=== PATIENT | male | born 1955 | race Caucasian/White ===

== ENCOUNTER 2016-09-25 07:17 | Emergency (ER) | payer OTHER ==
[~2016-09-25] VITALS: Ht 182.9 cm; Wt 81.6 kg
[~2016-09-25 07:17] MED LIST: CRESTOR 10MG10 MG PO; JANUMET 1000 MG1 TAB PO; SIMVASTATIN20 MG PO
--- NOTE | 2016-09-25 07:30 | ED AMS/SEIZURE/WEAK/DIZZY ---
History of Present Illness General Chief Complaint: Seizure Stated Complaint: BIBA SEIZURE Source: family, old records, EMS Exam Limitations: clinical condition Vital Signs & Intake/Output Vital Signs & Intake/Output Vital Signs Date Time Temp Pulse Resp B/P B/P Pulse O2 O2 Flow FiO2 Mean Ox Delivery Rate 09/25 820 84 16 142/74 94 Nasal 4.0L Cannula 09/25 816 94 Nasal 2.0L Cannula 09/25 722 98.9 80 14 134/91 98 Room Air Allergies Coded Allergies: NO KNOWN ALLERGIES (09/25/16) Reconcile Medications Metformin Hydrochloride/Bernie (Janumet 1000 MG-50 MG) 1 TAB TAB 1 TAB PO DAILY DM (Reported) Rosuvastatin Calcium (Crestor) 10 MG TABLET 1 TAB PO DAILY CHOL (Reported) Triage Nurses Notes Reviewed? yes HPI: Patient has known metastatic liver cancer. Patient is a full code despite being on hospice at home. Last night he began to complain of headache. Patient went to bed but then woke up during the night stating that his head was slightly better. This morning his was unable to wake him up and found him having tonic-clonic seizure activity. EMS was contacted and the patient was found unresponsive with a left fixed gaze. Patient had a tonic-clonic seizure in the ambulance and was given 2 mg of IV Ativan. Patient brought to the emergency department. Patient continues to have a left fixed gaze. Past History Travel History Traveled to [place] past 21 day No Medical History Any Pertinent Medical History? see below for history Cancer(s): liver cancer Surgical History Surgical History: non-contributory Psychosocial History What is your primary language Bruneian Tobacco Use: Cognitive Impairment Family History Hx Contributory? No Review of Systems Review of Systems Constitutional: Reports: see HPI. Physical Exam Physical Exam General Appearance: severe distress Head: atraumatic Eyes: Bilateral: other (LEFT FIXED GAZE, PUPILS NONREA). Ears, Nose, Throat: normal ENT inspection Neck: normal inspection, supple Respiratory: normal breath sounds, chest non-tender, no respiratory distress, lungs clear Cardiovascular: regular rate/rhythm, normal peripheral pulses Gastrointestinal: normal bowel sounds, soft Back: normal inspection Extremities: normal range of motion Neurologic/Psych: SEE BELOW Comments: Left fixed gaze with pupils fixed and dilated. Withdraws from painful stimuli. Babinski's downgoing bilaterally. Reflexes are 2+ bilaterally and symmetrically. Patient is nonverbal and not following any commands. Core Measures ACS in differential dx? No CVA/TIA Diagnosis: No Severe Sepsis Present: No Septic Shock Present: No Progress Differential Diagnosis: CVA/stroke, drug intoxication, electrolyte imbalance, intracranial Hem., intracranial mass/tumor Plan of Care: Orders Procedure Date/time Status EKG 09/25 0756 Active Telemetry/Internet Consultant 09/25 0730 Active Current Medications Sig/Sher Start time Last Medication Dose Stop Time Status Admin Morphine Sulfate 4 MG ONCE ONE 09/25 1315 AC (Morphine) 09/25 1316 Laboratory Tests 09/25/16 0730: Ammonia Cancelled, APTT Cancelled, CBC w Diff Cancelled, WBC Cancelled, RBC Cancelled, Hgb Cancelled, Hct Cancelled, MCV Cancelled, MCH Cancelled, RDW Cancelled, Plt Count Cancelled, MPV Cancelled, PUBS MCHC Cancelled, Urine Color Cancelled, Urine Clarity Cancelled, Urine pH Cancelled, Ur Specific [place] Cancelled, Urine Protein Cancelled, Urine Ketones Cancelled, Urine Nitrite Cancelled, Urine Bilirubin Cancelled, Urine Urobilinogen Cancelled, Ur Leukocyte Esterase Cancelled, Ur Microscopic Cancelled, Urine Hemoglobin Cancelled, Urine Glucose Cancelled Diagnostic Imaging: Viewed by Me: CT Scan. Discussed w/RAD: CT Scan. Radiology Impression: PATIENT: TOO HARP PRESENT AGE: 61 PATIENT ACCOUNT NO: [id number] : 53 LOCATION: [facility] ORDERING PHYSICIAN: GOPI SAEZ MD SERVICE DATE: 09/25/16 EXAM TYPE: CAT - CT HEAD WO IV CONTRAST EXAMINATION: CT HEAD WITHOUT CONTRAST CLINICAL INFORMATION: Seizure, nonresponsive. Age 61. COMPARISON: None TECHNIQUE : Contiguous axial imaging was performed from the skull base to vertex without intravenous administration of contrast. DLP: 1605 mGy-cm FINDINGS: There is an acute intraparenchymal hematoma at the posterior right temporal lobe measuring 2.6 x 3.5 cm. There is associated circumferential surrounding edema with effacement of the temporal lobe cortical sulci and mild impression on the right lateral ventricle. There is borderline midline shift of perhaps 2 mm. There is no associated intraventricular or subarachnoid hemorrhage. No hydrocephalus. Remainder of the casas-white matter differentiation appears symmetric. The calvarium appears intact. There is no pneumocephalus or orbital emphysema. The visualized sinuses and middle ears and mastoid air cells show no significant mucosal thickening. There are no air-fluid levels. Results are called to Dr. Saez in the Emergency Department at 0805 hours. IMPRESSION: Acute right posterior temporal intraparenchymal hematoma 3.5 cm with circumferential surrounding edema and mild mass effect. DICTATED BY: MARIO LEA MD DATE/ TIME DICTATED:09/25/16755 COMMERCIAL ART INSTRUCTOR:BRITTANI DATE/TIME TRANSCRIBED: 09/25/16755 CONFIDENTIAL, DO NOT COPY WITHOUT APPROPRIATE AUTHORIZATION. < Electronically signed in Other Vendor System> SIGNED BY: MARIO LEA MD 09/25/16809 CXR Impression: PATIENT: TOO HARP PRESENT AGE: 61 PATIENT ACCOUNT NO: [id number] : 53 LOCATION: [facility] ORDERING PHYSICIAN: GOPI SAEZ MD SERVICE DATE: 09/25/16 EXAM TYPE: RAD - XRY-PORTABLE CHEST XRAY EXAMINATION: XR PORTABLE CHEST CLINICAL INFORMATION: 61-year-old male patient found unresponsive. CT of the head demonstrated an acute right posterior temporal intraparenchymal hemorrhage. COMPARISON: Chest x- ray on 11/07/2011. TECHNIQUE: Portable AP semierect view of the chest was obtained. FINDINGS: The patient was unable to take a full inspiration for this exam. Given this and the semierect position, the heart does appear to be enlarged and the thoracic aorta uncoiled. There is no definite evidence of consolidating pneumonia or pulmonary edema. The lack of a satisfactory respiratory effort has resulted in crowding of the bronchovascular structures. There is marked osteolytic bone destruction of the lateral aspect of left clavicle associated with a soft tissue mass and soft tissue calcifications. This has resulted in gross separation of the left AC joint. No additional bone lesions are detected. IMPRESSION: 1. Heart enlarged. No CHF or aspiration pneumonia. 2. Osteolytic destruction of the lateral aspect of the clavicle and a soft tissue mass located in the vicinity of the left AC joint. Spicules of bone adjacent to the destroyed clavicle. A primary or secondary bone tumor is suspected. DICTATED BY: MOISES GUTIERREZ MD DATE/TIME DICTATED:09/25/16924 COMMERCIAL ART INSTRUCTOR:BRITTANI DATE/TIME TRANSCRIBED:09/25/16924 CONFIDENTIAL, DO NOT COPY WITHOUT APPROPRIATE AUTHORIZATION. <Electronically signed in Other Vendor System> SIGNED BY: MOISES GUTIERREZ MD 09/25/1601 Initial ED EKG: none Comments: CAT scan results were discussed with the . Patient is on home hospice. would prefer to just make him comfortable. Patient's CODE STATUS change to comfort measure only. Departure Departure Disposition: OTHER [facility] (ACUTE) Condition: Stable Clinical Impression Primary Impression: Intracerebral hemorrhage Referrals: LIZETH ASCENCIO MD (PCP/Family) Additional Instructions: ADMIT TO HOSPICE Departure Forms: Customer Survey General Discharge Information Critical Care Note Critical Care Note Critical Care Time: mins: (45 MIN)
--- NOTE | 2016-09-25 08:10 | CT SCAN REPORT ---
EXAMINATION: CT HEAD WITHOUT CONTRAST CLINICAL INFORMATION: Seizure, nonresponsive. Age 61. COMPARISON: None TECHNIQUE: Contiguous axial imaging was performed from the skull base to vertex without intravenous administration of contrast. DLP: 1605 mGy-cm FINDINGS: There is an acute intraparenchymal hematoma at the posterior right temporal lobe measuring 2.6 x 3.5 cm. There is associated circumferential surrounding edema with effacement of the temporal lobe cortical sulci and mild impression on the right lateral ventricle. There is borderline midline shift of perhaps 2 mm. There is no associated intraventricular or subarachnoid hemorrhage. No hydrocephalus. Remainder of the casas-white matter differentiation appears symmetric. The calvarium appears intact. There is no pneumocephalus or orbital emphysema. The visualized sinuses and middle ears and mastoid air cells show no significant mucosal thickening. There are no air-fluid levels. Results are called to Dr. Giordano in the Emergency Department at 0805 hours. IMPRESSION: Acute right posterior temporal intraparenchymal hematoma 3.5 cm with circumferential surrounding edema and mild mass effect.
[2016-09-25 08:21] VITALS: BP 142/74
--- NOTE | 2016-09-25 09:35 | RADIOLOGY REPORT ---
EXAMINATION: XR PORTABLE CHEST CLINICAL INFORMATION: 61-year-old male patient found unresponsive. CT of the head demonstrated an acute right posterior temporal intraparenchymal hemorrhage. COMPARISON: Chest x-ray on 11/07/2011. TECHNIQUE: Portable AP semierect view of the chest was obtained. FINDINGS: The patient was unable to take a full inspiration for this exam. Given this and the semierect position, the heart does appear to be enlarged and the thoracic aorta uncoiled. There is no definite evidence of consolidating pneumonia or pulmonary edema. The lack of a satisfactory respiratory effort has resulted in crowding of the bronchovascular structures. There is marked osteolytic bone destruction of the lateral aspect of left clavicle associated with a soft tissue mass and soft tissue calcifications. This has resulted in gross separation of the left AC joint. No additional bone lesions are detected. IMPRESSION: 1. Heart enlarged. No CHF or aspiration pneumonia. 2. Osteolytic destruction of the lateral aspect of the clavicle and a soft tissue mass located in the vicinity of the left AC joint. Spicules of bone adjacent to the destroyed clavicle. A primary or secondary bone tumor is suspected.
== END 2016-09-25 13:30 ==
LOC: ERH 07:17 → ENTRNSPT 13:27 → ERH 13:30 → CMPTRNSPT 09-26 14:29
DX: I61.9 Nontraumatic intracerebral hemorrhage, unspecified (principal)
CPT/HCPCS: 96374; 96375; 96376; J2405

== ENCOUNTER 2016-09-25 13:29 | Inpatient (IN) | payer OTHER ==
--- NOTE | 2016-09-25 13:30 | NUR ---
PT ARRIVED FROM ER WITH NURSING SUPERVISION AT BEDSIDE AND FAMILY. WHEN PULLING PT FROM STRETCHER TO BED, PT YELLED OUT AND ATTEMPTED TO PUSH STAFF AWAY. ONCE SETTLED IN BED, PT FELL ASLEEP WITHOUT S/S OF DISTRESS. AWAITING ORDERS FROM HOSPICE MD. NO ORDERS IN PLACE AT THIS TIME.
[2016-09-25 14:00] VITALS: BP 154/80
--- NOTE | 2016-09-25 15:55 | NUR ---
1400- PT ARRIVED TO FLOOR VIA STRETCHER FROM ER. FLAT DRIER PRESENT WITH FAMILY. PT BEING ADMITTED TO HOSPICE SERVICE. PT RESPONSIVE TO TOUCH/ REPOSITION. PT AGITATED AT TIMES TO REPOSITION. AND MANY FAMILY MEMBERS PRESENT. VSS. PT INCONTINENT OF URINE AND CLEANED. SKIN INTACT EXCEPT FOR A FEW SCABBED SCRATCHES TO EXTREMITIES. PT HAD BEEN MEDICATED IN ER WITH ATIVAN AND MORPHINE PRIOR TO COMING TO FLOOR. FAMILY REQUESTING ADDITIONAL MEDICATION FOR PT. DR. AWAD PAGED FOR HOSPICE ORDERS.
--- NOTE | 2016-09-25 15:59 | NUR ---
1500- DR. ROLLE PRESENT TO INPUT HOSPICE ORDERS INCLUDING MORPHINE DRIP, WHICH WAS DISCUSSED WITH BY TREE FELLER AND DR. ROLLE AND AGREED TO BY . SIZEWISE MATTRESS ORDERED. SEIZURE PRECAUTIONS PUT IN PLACE.
--- NOTE | 2016-09-25 17:28 | NUR ---
1715-CALLED TO ROOM BY FAMILY. PT VOMITING. MOUTH SUCTIONED AND PT CLEANED. PT ALSO AGITATED. MOD DR. CJ LAWRENCE CALLED AND INFORMED OF ABOVE. DR. LAWRENCE TO ORDER ZOFRAN AND TO CHANGE ORDER FOR ATIVAN FROM Q4 TO Q3. WILL CONTINUE TO MONITOR.
--- NOTE | 2016-09-25 18:30 | PN- Att Addend ---
Attending Addendum Attending Brief Note Chief complaint- seizure this morning History of present illness Patient seen and examined. Plan of care discussed with the medical team and the patient. Available lab work and radiology test reports were reviewed. Patient 61-year-old male who has been suffering from a metastatic liver cancer with metastases to bones and brain who has been mostly treated at [facility] and never been to [facility] before. Therefore no records are available. Patient was obtunded and was not able to contribute to history. Multiple family member were present at the bedside. History was taken from family members. Apparently patient was diagnosed but year and half ago with liver cancer with metastasis. Later on he was also diagnosed with brain metastases. He was on chemotherapy which apparently did not improve his condition and chemotherapy has been stopped recently. As per family patient has been on hospice care at home. This morning family noted him to be seizing and after the seizure patient became lethargic and obtunded. They opted to bring him in to emergency room. Initially family wanted to take him back home as per patient's wishes however he was too lethargic to be able to be discharged home. Past history * Metastatic liver cancer * Possible diabetes * Hypertension Allergies None Medication-for CMR. Apparently patient has been taking OxyContin Ativan at home for pain control Family history-reviewed and noncontributory Social history- patient lives at home with family; he doesn't smoke or drink Vital Signs Date Time Temp Pulse Resp B/P B/P Pulse O2 O2 Flow FiO2 Mean Ox Delivery Rate 09/25 1400 97.7 77 18 154/80 92 Room Air Exam: General: Patient is lethargic and obtunded and does not wake up and does not follow commands CVS: S1 plus S2 without any murmur or gallops Chest: Few scattered crepitation without any wheeze. There is no respiratory distress. Abdomen: Soft nontender, bowel sound present, no guarding or rebound LENS CLEANER: Obtunded and difficult to do a neurological exam. Tone appears to be intact bilaterally. Patient resists eye opening. Patient is intermittently noted be morning. Extremities: No edema; no clubbing or cyanosis noted Labs- none obtained Chest x-ray 1. Heart enlarged. No CHF or aspiration pneumonia. 2. Osteolytic destruction of the lateral aspect of the clavicle and a soft tissue mass located in the vicinity of the left AC joint. Spicules of bone adjacent to the destroyed clavicle. A primary or secondary bone tumor is suspected. CT head Acute right posterior temporal intraparenchymal hematoma 3.5 cm with circumferential surrounding edema and mild mass effect. Assessment * Suspected intracranial bleed * Metastatic brain tumor * Metastatic liver cancer * Metastases to bone * History of hypertension * Seizure disorder Plan At this point family has opted to continue hospice care. They had informed me that the patient does not wish to be in hospital and will like to be discharged as possible back to home hospice. His CODE STATUS was changed to comfort measures. We will start morphine and Ativan and scopolamine patch. Plan is for possible discharge back to home tomorrow. Plan was discussed with hospice nurse and patient's family.
--- NOTE | 2016-09-25 19:37 | NUR ---
AT 1830 UPON BEDSIDE REPORT PATIENT WAS EXTREMELY AGITATED, ANXIOUS, AND COMBATIVE. FLACC SCORE OF 7. ATIVAN WAS PREVIOUSLY JUST GIVEN ONE HOUR PRIOR. PATIENT GIVEN 4 MG MORPHINE PER EMAR. AT 1900 MD HOOD WAS CALLED AND THIS RN REQUESTED SCHEDULED ATIVAN FOR THE PATIENT HE IS VERY ANXIOUS AND AGITATED AND HAD A SEIZURE THIS MORNING. MD ORDERED 1 MG IV ATIVAN Q 4 HOURS. THIS RN ALSO REQUESTED THAT PATIENT BE ON SQ HALDOL FOR HALLUCINATIONS, PATIENT IS CONTINUALLY SWATTING AND GRABBING AT NOTHING. THIS RN EXPLAINED THAT HALDOL IS A STANDARD HOSPICE ORDER. STATED THAT WE CAN SEE HOW SUCCESSFUL THE IV ATIVAN SCHEDULED IS FIRST. THIS RN ALSO EXPLAINED TO MD HOOD THAT THE MORPHINE GTT PROTOCOL WAS INCORRECT IN THE EMAR AND THE PRN DOSES NEEDED TO BE DC'D AND A Q 20 MINUTE MORPHINE PER PROTOCOL NEEDED TO BE ADDED. STATED THAT THE ORDER IS FINE IS AND CAN BE CHANGED IN THE MORNING BY THE HOSPICE EPIC DIRECTOR. PATIENT WAS GIVEN PRN MORPHINE AND PRN ATIVAN AND IS CURRENTLY RESTING COMFORTABLY WITH FAMILY AT BEDSIDE.
--- NOTE | 2016-09-25 22:44 | NUR ---
THIS RN SPOKE TO MD HOOD REGARDING PATIENT'S INCREASING AGITATION. PRN 1MG SQ HALDOL WAS ORDERED AND ADMINISTERED VIA SQ BUTTON TO L ABD THAT WAS INSERTED BY THIS RN. PT CONTINUES TO BE INCREASINGLY AGITATED. FLACC SCORE OF 7 INDICATED FOR MORPHINE BOLUS' AT 2113,2138,2205. MORPHINE GTT WAS INCREASED TO 4 MG/HR THEREAFTER PER TITRATION PROTOCOL. AT THIS TIME PATIENT IS RESTING QUIETLY WITH RR 12, EVEN AND NON-LABORED AND A FLACC SCORE OF 0. FAMILY AT BEDSIDE AT THIS TIME AND UNDERSTANDS PLAN OF CARE.
[2016-09-26 06:50] VITALS: BP 130/80
--- NOTE | 2016-09-26 08:30 | NUR ---
CARE ASSUMED BY THIS RN. PT APPEARS TO BE SLEEPING, BUT PER AND FAMILY, MOVING HANDS IF TO GRAB HIS HEAD. PER , PT HAS BEEN GRABBING HIS HEAD WHEN IN PAIN. MORPHINE GTT CURRENTLY RUNNING AT 4MG/HR VIA HL TO RW. BOLUS DOSE ADMINISTERED. AND FAMILY AT BEDSIDE. EDUCATION PROVIDED ABOUT MORPHINE GTT PROTOCOL. ADDITIONAL BOLUS DOSES GIVEN AT 9AM AND 930AM. MORPHINE GTT INCREASED TO 8MG/HR. WILL CONTINUE TO MONITOR.
--- NOTE | 2016-09-26 10:00 | NUR ---
PT PRE-MEDICATED WITH 1MG IV ATIVAN AND 8MG IV MORPHINE PRIOR TO TRANSFER TO [facility]. PT MOANING WITH REPOSITIONING AND ATTEMPTING TO GET OUT OF BED. WHEN ASKED IF HE HAD TO USE THE BATHROOM, PT STATES "YES" AND ATTEMPTED TO GET OUT OF BED. PT ABLE TO STAND AT EDGE OF BED WITH ASSIST OF 2 AND VOIDED 250ML OF CLEAR BATSHEVA URINE. ASSISTED BACK TO BED, REPOSITIONED ON BACK PER FAMILY. STATES THAT PT HAS TOO MUCH PAIN FROM MULTIPLE TUMORS TO BE TURNED ON SIDE. SKIN REMAINS INTACT. BED ALARM PLACED. FAMILY REMAINS AT BEDSIDE.
--- NOTE | 2016-09-26 11:00 | NUR ---
PT APPEARS COMFORTABLE. RR 16 AND NON-LABORED. MORPHINE GTT INFUSING AT 8MG/HR. PRN HALDOL AND ZOFRAN GIVEN ORDERED PER FAMILY'S REQUEST. PT HAS NO S/S OF ACTIVE NAUSEA AND HAS NOT VOMITTED BUT FAMILY EXPRESSED CONCERN DUE TO HIS EPISODE OF VOMITTING EARLIER IN THE DAY. WILL MONITOR.
--- NOTE | 2016-09-26 14:00 | NUR ---
PT APPEARS COMFORTABLE. NO S/S OF DISTRESS OR PAIN. SCHEDULED IV ATIVAN GIVEN ORDERED. FAMILY REFUSING REPOSITIONING. BED ALARM IN PLACE, SAFETY MAINTAINED.
--- NOTE | 2016-09-26 14:26 | PN- Hospice ---
Subjective Subjective: Family at bedside. Pt resting comfortably at this time, had rough night with pain and agitation. Currently with morphine drip at 8mg/hr. Ativan is schduled every 4 hrs and still with agitation during care. Has received Haldol 1 mg x3 doses overnight, zofran x 3 doses overnight. Arousable to stimulation, no oral intake. Was able to stand earlier today with assistance to use urinal. Objective Last 24 Hrs of Vital Signs/I&O Vital Signs Date Time Temp Pulse Resp B/P B/P Pulse O2 O2 Flow FiO2 Mean Ox Delivery Rate 09/26 0650 97.8 78 20 130/80 93 Room Air Intake & Output 09/26 1600 09/26 0800 09/26 0000 Intake Total 50 30 Output Total 300 Balance -250 30 Intake, IV 50 30 Output, 300 Emesis Physical Exam General Appearance: no apparent distress, comfortable, sedated Head: atraumatic, normal appearance Respiratory: no respiratory distress, crackles (fine, scattered anteriorly) Cardiovascular: regular rate/rhythm Extremities: no edema, no mottling Current Medications: Current Medications Sig/Sher Start time Last Medication Dose Route Stop Time Status Admin Acetaminophen 650 MG Q4P PRN 09/25 1445 AC MS Artificial Tears 2 GTT Q2P PRN 09/25 1430 AC OU Bisacodyl 10 MG DAILY PRN 09/26 1345 AC MS Fentanyl Citrate 50 MCG Q72H 09/25 1445 DC TOP Glycerin 2 SPRAY Q4P PRN 09/25 1430 AC PO Glycerin/Mineral Oil 1 AGATHA Q8P PRN 09/25 1430 AC TOP Haloperidol 1 MG Q6 09/26 1800 AC SC Haloperidol 5 MG .STK-MED ONE 09/26 0450 DC IM 09/26 0451 Haloperidol 1 MG Q6-PRN PRN 09/25 2115 AC 09/26 SC 1055 Lorazepam 1 MG Q4 09/25 2200 AC 09/26 IV 1341 Lorazepam 1 MG Q3 PRN 09/25 1723 AC 09/26 IV 0832 Lorazepam 2 MG Q4P PRN 09/25 1445 DC 09/25 IV 1445 Lorazepam 1 MG Q4P PRN 09/25 1445 DC IV Morphine Sulfate 100 MG Q12H 09/26 1015 AC 09/26 Dextrose/Water 100 ML IV 1055 Morphine Sulfate See Dose [id number] PRN 09/25 2045 AC 09/26 Insts (1) IV 1016 Morphine Sulfate 100 MG Q24H 09/25 1500 DC 09/25 Dextrose/Water 100 ML IV 2208 Morphine Sulfate 4 MG Q4P PRN 09/25 1445 DC 09/25 IV 1842 Morphine Sulfate 0 Q2P PRN 09/25 1445 DC SC Morphine Sulfate 2 MG Q2P PRN 09/25 1445 DC IV Ondansetron HCl 4 MG .STK-MED ONE 09/26 0452 DC IM 09/26 0453 Ondansetron HCl 4 MG Q6P PRN 09/25 1730 AC 09/26 IV 1055 Scopolamine HBr 1 PAT Q72 09/28 1000 CAN TOP Scopolamine HBr 1 PAT Q72 PRN 09/25 1445 AC TOP Dose Instructions: (1)Morphine Sulfate: PER MORPHINE DRIP PROTOCOL Assessment/Plan Assessment/Recommendations: Pt. is a 61-year-old male admitted yesterday from home. 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 He had a seizure 03/03 am and came to [place] ED where CT of head revealed acute right posterior temporal intraparenchymal hematoma with surrounding edema and mild mass effect. At home he had been on large doses of oxycontin and oxycodone, for pain management since April, as well as morphine oral concentrate more recently. Today, pt appears comfortable but is still having periods of agitation and nausea. Will schedule haldol 1mg every 6 hours and continue with prn haldol and zofran as well. Support provided to family. Problem List: 1. Intraparenchymal hematoma of brain 2. Seizure 3. Carcinoma of liver 4. Brain metastases 5. Bone metastases
[2016-09-27 06:16] VITALS: BP 144/82
--- NOTE | 2016-09-27 12:23 | NUR ---
0000 PT ASLEEP WITH NO DISTRESS NOTED.FAMILY AT BEDSIDE.ON RA.MORPHINE GTT @ 8ML/HR.HOB UP.NO RESP DISTRESS NOTED.ON SIZEWISE BED.JAUNDICE.SEIZURE PRECAUTION.MED GIVEN ORDERED. 0200 ASLEEP 0400 REMAINS ASLEEP WITHOUT PROBLEM. 0600 PT WOKE UP GOT RESTLESS & WANTED TO GET OUT OF BED.OOB WITH 2 STAFFS. STAND TO VOID.ASSISTED BACK TO BED & MADE COMFORTABLE.SETTLED BACK TO SLEEP.FAMILY REMAINS AT BEDSIDE.
--- NOTE | 2016-09-27 14:42 | PN- Hospice ---
Subjective Subjective: Family at bedside. Pt is sleeping, appears comfortable. Has woken up for brief periods with short verbalizations to family. No oral intake. Cordova catheter was placed this am with 700cc dark fide urine returned. reports pt has had audible secretions. Low grade fever noted this am. No nausea or vomiting since scheduled haldol started. Morphine drip remains at 8mg an hour. Objective Last 24 Hrs of Vital Signs/I&O Vital Signs Date Time Temp Pulse Resp B/P B/P Pulse O2 O2 Flow FiO2 Mean Ox Delivery Rate 09/27 0616 99.1 105 20 144/82 88 Room Air 09/27 0000 Room Air Intake & Output 09/27 1600 09/27 0800 09/27 0000 Intake Total 64 30 Output Total 550 300 Balance -486 -270 Intake, IV 64 30 Intake, Oral 0 0 Number 0 Bowel Movements Output, Urine 550 300 Physical Exam General Appearance: no apparent distress, sedated Head: atraumatic Respiratory: no respiratory distress, rhonchi (anteriorly) Cardiovascular: tachycardia Abdomen: soft, non-tender Extremities: no edema, no mottling Skin: warm and mildly diaphoretic Other Physical Findings: cordova catheter with fide urine Assessment/Plan Assessment/Recommendations: Pt. 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 Pt appears comfortable, continue scheduled ativan and haldol, morphine drip with titration protocol. For congestion, discussed with nursing to apply scopolamine patch (if it had been on previously, it fell off); scheduled robinul ordered as well as when necessary Robinul. Monitor temperature and give tylenol as directed. Problem List: 1. Intraparenchymal hematoma of brain 2. Seizure 3. Carcinoma of liver 4. Brain metastases
--- NOTE | 2016-09-27 19:47 | NUR ---
PT ALERT & CONFUSED, ON ROOM AIR, RR 14-16 AND NONLABORED. RESPONSIVE TO QUESTIONS AND VERBAL STIMULI, DENIES PAIN/DISCOMFORT. ON MORHPHINE GTT AT 8MG/HR. PEARL PLACED AT 1101 DUE TO PT BEING UNSTEADY ON FEET AND HAVING TROUBLE VOIDING. MULTIPLE FAMILY MEMBERS AT BEDSIDE THROUGHOUT DAY, EMOTIONAL SUPPORT AND TEACHING PROVIDED WHEN NECESSARY. SAFETY MAINTAINED, NEEDS IN REACH.
--- NOTE | 2016-09-28 03:51 | NUR ---
NURSING NOTE: PT BECAME RESTLESS AND AGITATED. PULLING AT PEARL, ATTEMPTING TO GET OOB. ATTEMPTS AT REORIENTATION UNSUCCESSFUL. PRN ATIVAN ADMINISTERED IV. PT SAFELY IN BED, RESTING, WITH FAMILY AT BEDSIDE.
[2016-09-28 06:30] VITALS: BP 140/84
--- NOTE | 2016-09-28 15:45 | NUR ---
PT CALM AND COMFORTABLE, RR 12-14 ON ROOM AIR, UNLABORED, NO DYSPNEA. DENIES PAIN/DISCOMFORT. PEARL CATH IN PLACE. MORPHINE GTT RUNNING AT 8MG/HR. FAMILY AT BEDSIDE, EMOTIONAL SUPPORT GIVEN AND TEACHING PROVIDED WHEN NECESSARY.
--- NOTE | 2016-09-28 15:50 | PN- Hospice ---
Subjective Subjective: Pt sleeping, comfortable. Family at bedside. Less congested, awake earlier, confused but conversant. Received only 1 dose prn ativan and no prn haldol, no morphine bolus; in addition to scheduled ativan and haldol, morphine drip at 8mg /hr. Taking sips of fluids. Objective Last 24 Hrs of Vital Signs/I&O Vital Signs Date Time Temp Pulse Resp B/P B/P Pulse O2 O2 Flow FiO2 Mean Ox Delivery Rate 09/28 0630 97.6 117 14 140/84 90 Room Air 09/27 1948 98.4 09/27 1600 99.1 Intake & Output 09/28 1600 09/28 0800 09/28 0000 Intake Total 76 64 Output Total 50 200 200 Balance 26 -136 -200 Intake, IV 56 64 Intake, Oral 20 0 Output, Urine 50 200 200 Physical Exam General Appearance: no apparent distress, comfortable, sedated Head: atraumatic Ears, Nose, Throat: moist mucus membranes Respiratory: normal breath sounds, no respiratory distress Cardiovascular: regular rate/rhythm Extremities: no edema Other Physical Findings: cordova with fide urine Assessment/Plan Assessment/Recommendations: Pt. 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 Pt appears comfortable, continue scheduled ativan and haldol, morphine drip with titration protocol. Congestion improved.
--- NOTE | 2016-09-28 20:00 | NUR ---
PT ALERT TO PERSON, NO C/O PAIN. PT APPEARS COMFORTABLE IN BED. NO S/S OF AGITATION. FAMILY PRESENT AT BEDSIDE. EMOTIONAL SUPPORT PROVIDED. WILL FOLLOW UP.
[2016-09-29 07:49] VITALS: BP 136/76
--- NOTE | 2016-09-29 09:00 | NUR ---
PT AWAKE AND ALERT. ORIENTED TO SELF BUT REQUIRES RE-ORIENTATION TO PLACE AND TIME. DENIES PAIN OR DISTRESS AT THIS TIME. MORPHINE GTT INFUSING AT 8MG/HR VIA IV TO RIGHT WRIST. PEARL IN PLACE DRAINING BATSHEVA URINE TO GRAVITY. PER FAMILY AND PT, OK TO GET CLEANED. BED BATH GIVEN. SKIN REMAINS INTACT. PT ABLE TO PARTICIPATE IN CARE AND ASSIST WITH TURNING. DENIES PAIN WITH MOVEMENT. OCCASSIONAL CONGESTED COUGH NOTED BUT PT REMAINS ON RA WITHOUT RESPIRATORY DISTRESS. ON SIZEWISE MATTRESS. GIVEN SIPS OF FLUIDS BUT NOT EATING AT THIS TIME. FAMILY AT BEDSIDE. COMFORT CART ORDERED. BED ALARM REMAINS IN PLACE. SAFETY MAINTAINED.
--- NOTE | 2016-09-29 15:34 | PN- Hospice ---
Subjective Subjective: Pt. appears comfortable, family at bedside. He remains on morphine drip at 8mg/ hr and has used no prns. He is arousable to stimuli and denies pain or dyspnea. Family report he was alert earlier in day, confused conversation at times, re- oriented. He is taking a few sips and bites orally. Review of Systems Constitutional: Reports: see HPI. Objective Last 24 Hrs of Vital Signs/I&O Vital Signs Date Time Temp Pulse Resp B/P B/P Pulse O2 O2 Flow FiO2 Mean Ox Delivery Rate 09/30 0629 98.6 101 20 140/70 92 Room Air 09/30 0000 Nasal 1.0L Cannula Intake & Output 09/30 1600 09/30 0800 09/30 0000 Intake Total 184 64 Output Total 250 150 Balance -66 -86 Intake, IV 64 64 Intake, Oral 120 Output, Urine 250 150 Physical Exam General Appearance: comfortable Respiratory: no respiratory distress, lungs clear Cardiovascular: regular rate/rhythm, systolic murmur Abdomen: slight distension, no tenderness Extremities: no edema, strong pedal pulses Other Physical Findings: cordova with fide urine Assessment/Plan Assessment/Recommendations: Pt. 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 Pt appears comfortable, continue scheduled ativan and haldol, morphine drip with titration protocol.
--- NOTE | 2016-09-30 02:05 | NUR ---
PT FAMILY REQUEST THAT STAFF ENTER ROOM FOR MEDICATION ADMINISTRATION ONLY.
[2016-09-30 06:29] VITALS: BP 140/70
--- NOTE | 2016-09-30 08:00 | NUR ---
PT VERY DROWSY BUT AROUSABLE. O2 2L IN PLACE. RR WNL. NO RESPIRATORY DISTRESS. OPENS EYES WITH CARE AND ABLE TO STATE THAT HE IS NOT HAVING ANY PAIN. MORPHINE GTT MAINTAINED AT 8MG/HR VIA IV IN RIGHT WRIST. PEARL DRAINING TO GRAVITY. FAMILY AT BEDSIDE. SAFETY MAINTAINED.
--- NOTE | 2016-09-30 13:04 | Discharge Summary ---
Visit Information Visit Dates Admission Date: 09/25/16 Discharge Date: 09/30/16 Hospital Course Course Attending Physician: RITESH PATTON,ROBERT Primary Care Physician: SONU PATTON,LIZETH Cerrato Other Care Providers: Rachel Avalos APRN Hospital Course: PtMumtaz is a 61-year-old male admitted from home. 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 He had a seizure 09/25/16 am and came to [place] ED where CT of head revealed acute right posterior temporal intraparenchymal hematoma with surrounding edema and mild mass effect. At home he had been on large doses of oxycontin and oxycodone, for pain management since April, as well as morphine oral concentrate more recently. He was placed on a morphine drip for pain, currently at 8mg/hr IV with titration protocol. For agitation and anxiety he has been receiving haldol 1mg IM every 6 hrs scheduled and ativan 1mg IV every 4 hours. He has not needed any as needed medication for the past 2 days. He has also been receiving Robinul scheduled which will be transitioned to scopolamine and atropine drops. His family would like to take him home so that he may pass at home as per previously expressed wishes. Mr. Webb is intermittently awake and alert, conversant for short periods, though confused. He is more lethargic today than the past 2 days. He is taking sips and bites orally. He has a cordova catheter, draining fide urine and using oxygen 2-3lnp as needed. He denies pain and family reports no anxiety or agitation. T-98.6; HR-101; RR-20; BP-140/70 Gen: Lethargic but arousable male in no acute distress, appears comfortable. Resp: resp. not labored, lungs clear CV: tachycardic : cordova with fide urine Ext: Pos. pedal pulses bilat, no edema or mottling Allergies: Coded Allergies: NO KNOWN ALLERGIES (09/25/16) Disposition Summary Disposition Principal Diagnosis: Intraparenchymal hematoma of brain Seizure Carcinoma of liver Brain and bone metastases Additional Diagnosis: Hypertension Discharge Disposition: hospice - home Discharge Instructions General Discharge Information Code Status: Hospice Patient's Diet: Regular Patient's Activity: as tolerated Follow-Up Instructions/Appts: None Medications at Discharge Discharge Medications: Stop taking the following medications: Metformin Hydrochloride/Bernie (Janumet 1000 MG-50 MG) 1 TAB TAB ORAL DAILY Qty = 60 Rosuvastatin Calcium (Crestor) 10 MG TABLET ORAL DAILY Qty = 90 Continue taking these medications: Haloperidol Lactate (Haloperidol Lactate) 2 MG/ML ORAL.CONC 1 Milligram SUBLINGUAL EVERY SIX HOURS Qty = 1 Haloperidol Lactate (Haloperidol Lactate) 2 MG/ML ORAL.CONC 1 Milligram SUBLINGUAL EVERY 4 HOURS NEEDED as needed for agitation Qty = 1 Morphine Sulfate (Morphine Sulfate) 30 MG/30 ML (1 MG/ML) BEAN DUMPER.SYRING 8 Milligram Inject into fatty tissue EVERY HOUR Instructions: continuous infusion. May bolus 4mg every 20min. as needed for pain Lorazepam (Lorazepam Intensol) 2 MG/ML ORAL.CONC 1 Milligram SUBLINGUAL Every 4 hours Instructions: Give every 4hours scheduled and every 2 hours as needed for anxiety Ondansetron (Zofran Odt) 4 MG TAB.RAPDIS 1 Tablet SUBLINGUAL EVERY SIX HOURS NEEDED as needed for NAUSEA/VOMITING Scopolamine Hydrobromide (Transderm-Scop) 1.5MG/3DAY PATCH.TD.3 1-2 Patch TRANSDERM EVERY 72 HOURS (EVERY 3 DAYS) Acetaminophen (Acephen) 650 MG SUPP.RECT 1 Suppository RECTALLY EVERY 4 HOURS NEEDED as needed for FEVER > 101 Atropine Sulfate (Atropine Sulfate) 1 % DROPS 2 Drop SUBLINGUAL EVERY 2 HOURS NEEDED as needed for secretions Copies To: SONU PATTON,LIZETH Cerrato
--- NOTE | 2016-09-30 14:00 | NUR ---
PT REMAINS COMFORTABLE. RR WNL. NO S/S OF PAIN. MORPHINE GTT MAINTAINED. FAMILY REMAINS AT BEDSIDE. AWAITING BULB GROWER ORDERS FOR DISCHARGE.
[2016-09-30] MEDS ORDERED: HALOPERIDOL2 MG/1 ML SL ×2 (16:20→16:21)
[2016-09-30] MEDS ORDERED: MORPHINE S30 MG/301 SC (16:27)
[2016-09-30] MEDS ORDERED: LORAZEPAM I2 MG/1 ML SL (16:31)
[2016-09-30] MEDS ORDERED: ZOFRAN ODT4 M1 SL (16:33)
[2016-09-30] MEDS ORDERED: TRANSDERM-SCOP1 EACH TD (16:34)
[2016-09-30] MEDS ORDERED: ACEPHEN650 M1 PR (16:35)
[2016-09-30] MEDS ORDERED: ATROPINE SULFATE2 ML SL (16:36)
--- NOTE | 2016-09-30 16:43 | Patient Discharge Instructions ---
Discharge Instructions Diet Continue normal diet: Yes Activity Activity Self Limited: Yes Acute Coronary Syndrome Inclusion Criteria At DC or during hospital stay patient has or had the following: Discharge Core Measures Meds if any: Prescribed or Continued at Discharge Meds if any: NOT Prescribed or Continued at Discharge Congestive Heart Failure Inclusion Criteria At DC or during hospital stay patient has or had the following: Discharge Core Measures Meds if any: Prescribed or Continued at Discharge Meds if any: NOT Prescribed or Continued at Discharge Cerebrovascular accident Inclusion Criteria At DC or during hospital stay patient has or had the following: Discharge Core Measures Meds if any: Prescribed or Continued at Discharge Meds if any: NOT Prescribed or Continued at Discharge Venous thromboembolism Discharge Core Measures - Per Current guidelines, there needs to be overlap - treatment for the first 5 days of Warfarin therapy. - If discharged on Warfarin prior to 5 days of - overlap therapy, the patient will need to be - assessed for post discharge needs including - *Post discharge parental anticoagulation - *Warfarin and/or parental anticoagulation education - *Follow up date to check INR post discharge Meds if any: Prescribed or Continued at Discharge Note: Overlap Therapy is Warfarin and Anticoagulant Meds if any: NOT Prescribed or Continued at Discharge
== END 2016-09-30 19:05 | disposition home or self-care (01) | DRG 64 ==
LOC: 2NA 13:29 → ENPENDDIS 09-30 16:00 → 2NA 09-30 19:05
PROVIDERS: ADMIT Hospitalist
DX: I61.8 Other nontraumatic intracerebral hemorrhage (principal); G93.6 Cerebral edema; C22.8 Malignant neoplasm of liver, primary, unspecified as to type; C79.31 Secondary malignant neoplasm of brain; C79.51 Secondary malignant neoplasm of bone; Z51.5 Encounter for palliative care; R56.9 Unspecified convulsions; I10 Essential (primary) hypertension
CPT/HCPCS: 2NAP; J1630; J2060; J2270; J2405